=== PATIENT | female | born 1950 | race Hispanic/Latino ===

== ENCOUNTER 2020-12-23 11:54 | Emergency (ER) | payer MEDICARE ==
[~2020-12-23] VITALS: Ht 157.5 cm; Wt 73.2 kg
[2020-12-23] MEDS ORDERED: ALENDRONATE SOD10 MG (12:11)
[2020-12-23] MEDS ORDERED: OMEPRAZOLE40 MG PO (12:11)
[2020-12-23] MEDS ORDERED: METOPROLOL TART25 MG PO (12:11)
[2020-12-23] MEDS ORDERED: FLOMAX0.4 MG PO (12:11)
[2020-12-23] MEDS ORDERED: FUROSEMIDE40 MG PO (12:11)
[2020-12-23] MEDS ORDERED: POTASSIUM CHLO10 ME1 PO (12:11)
[2020-12-23] MEDS ORDERED: FOSAMAX70 MG (12:11)
[2020-12-23] MEDS ORDERED: ONDANSETRON HCL INJ 2MG/ML 2ML 2 MG/ML VIAL IV STA (12:54)
[2020-12-23] MEDS ORDERED: SODIUM CHLORIDE 0.9% 1000ML 1,000 ML IV SCH (13:00)
[2020-12-23] MEDS ORDERED: SODIUM CHLORIDE 0.9% 1000ML 1,000 ML ONE (13:13)
[2020-12-23] MEDS ORDERED: IOPAMIDOL 370 MG/ML 200 ML INFUS..BTL INJ ONE (13:28)
[2020-12-23] MEDS ORDERED: SODIUM CHLORIDE 0.9% 50ML 50 ML ONE (13:28)
[2020-12-23] MEDS ORDERED: POTASSIUM CHLORIDE 20 MEQ TAB CR PO STA (16:40)
[2020-12-23] MEDS ORDERED: HYDROCORTISONE25 MG PR (16:44)
[2020-12-23] MEDS ORDERED: HYDROCODONE/APAP 5MG-325MG TAB PO ONE (16:45)
[2020-12-23] MEDS ORDERED: MAGNESIUM CITR296 ML PO (16:50)
[2020-12-23 17:21] VITALS: BP 123/64
== END 2020-12-23 17:21 | disposition home or self-care (01) ==
LOC: FSED 12:03
DX: K60.0 Acute anal fissure (principal); K59.00 Constipation, unspecified; K62.89 Other specified diseases of anus and rectum; R10.84 Generalized abdominal pain; I10 Essential (primary) hypertension
CPT/HCPCS: 74177; 80053; 81003; 82553; 84484; 85025; 96374; 99284; J2405; J7030; Q9967

== ENCOUNTER 2021-07-21 13:00 | Outpatient (RCR) | payer MEDICARE ==
[~2021-07-21 13:00] MED LIST: ALENDRONATE SOD10 MG; FLOMAX0.4 MG PO; FOSAMAX70 MG; FUROSEMIDE40 MG PO; HYDROCORTISONE25 MG PR; MAGNESIUM CITR296 ML PO; METOPROLOL TART25 MG PO; OMEPRAZOLE40 MG PO; POTASSIUM CHLO10 ME1 PO
== END 2021-07-23 ==
LOC: PT 13:00
PROVIDERS: ATTEND Specialist
DX: M17.12 Unilateral primary osteoarthritis, left knee (principal); M54.50 Low back pain, unspecified; M54.2 Cervicalgia; M62.81 Muscle weakness (generalized); S16.1XXD Strain of muscle, fascia and tendon at neck level, subsequent encounter

== ENCOUNTER 2021-08-07 13:00 | Outpatient (RCR) | payer MEDICARE | END 2021-08-22 | LOC: PT 13:00 | PROVIDERS: ATTEND Specialist | DX: M17.12 Unilateral primary osteoarthritis, left knee (principal); M54.2 Cervicalgia; M54.50 Low back pain, unspecified; M62.81 Muscle weakness (generalized); S16.1XXD Strain of muscle, fascia and tendon at neck level, subsequent encounter ==

== ENCOUNTER → 2025-06-18 | Day surgery (SDC) | payer MEDICARE ==
[2025-06-17 11:31] LABS: BASOPHILS % 0.4 % (0.0-1.0); EOSINOPHILS % 3.1 % (0.0-6.0); LYMPHOCYTES % 36.6 % (18.0-39.1); MONOCYTES % 7.7 % (4.4-11.3); NEUTROPHILS % 52.0 % (38.7-80.0); RED CELL DISTRIBUTION WIDTH 13.4 % (11.7-14.4)
[2025-06-17 11:54] LABS: EST GLOMERULAR FILTRATION RATE 95.0 ML/MIN (>=60)
[~2025-06-18] MED LIST changes: +ACETAMINOPHEN 1000 MG/100 ML 100 ML IV ONE; +ASPIRIN81 MG PO; +CRESTOR40 MG PO; +DYMISTA NASAL S23 GM INH; +EPHEDRINE SULFATE INJ 50 MG/ML VIAL ONE; +FIBERCON625 MG PO; +FLONASE ALLERG9.9 ML INH; +LIDOCAINE HCL 2% LOCAL INJ 5 ML SDV VIAL INJ ONE; +PLAVIX75 MG PO; +PROPOFOL IV EMULSION 10 MG/ML 20 ML VIAL ONE; +SEVOFLURANE INHAL SOLN 250 ML PEN BTL ONE; +TRIAMTERENE-HCTZ1 EA PO; +VIT D3 PO; +VIT E PO; +ZETIA10 MG PO
[2025-06-18] MEDS: LACTATED RINGER'S 1,000 ML ONE (06:11)
[2025-06-18] MEDS: CEFTRIAXONE 1 GM VIAL ONE (06:11)
[2025-06-18 07:33] VITALS: TEMP 98.6
[2025-06-18 08:20] VITALS: BP 107/62; PULSE 66; RESP 15; O2SAT 96
== END | disposition home or self-care (01) ==
LOC: OR 05:30
PROVIDERS: ATTEND Urology
DX: N20.0 Calculus of kidney (principal); N39.0 Urinary tract infection, site not specified; R35.1 Nocturia; E66.01 Morbid (severe) obesity due to excess calories; E11.9 Type 2 diabetes mellitus without complications; I25.10 Atherosclerotic heart disease of native coronary artery without angina pectoris; I10 Essential (primary) hypertension; E78.5 Hyperlipidemia, unspecified; K21.9 Gastro-esophageal reflux disease without esophagitis; K44.9 Diaphragmatic hernia without obstruction or gangrene; M06.9 Rheumatoid arthritis, unspecified; M19.90 Unspecified osteoarthritis, unspecified site; Z01.810 Encounter for preprocedural cardiovascular examination; Z01.812 Encounter for preprocedural laboratory examination; Z01.818 Encounter for other preprocedural examination; Z79.82 Long term (current) use of aspirin; Z79.02 Long term (current) use of antithrombotics/antiplatelets; Z79.899 Other long term (current) drug therapy; Z95.5 Presence of coronary angioplasty implant and graft; Z80.52 Family history of malignant neoplasm of bladder; Z84.1 Family history of disorders of kidney and ureter
CPT/HCPCS: 36415; 50590; 71046; 74018; 80048; 85025; 93005; J0131; J0696; J2003; J2704; J7121